=== PATIENT | female | born 1945 | race Caucasian/White ===

== ENCOUNTER 2021-04-27 15:43 | Inpatient (IN) ==
[2021-04-27] MEDS ORDERED: Isovue-370 500 ML BOTTLE IVP ONE (16:05)
[2021-04-27 16:17] LABS: Hematocrit 43.8 % (35.3-44.9); Hemoglobin 14.2 g/dL (11.5-15.4); Mean Corpuscular HGB Conc 32.4 g/dL (31.6-35.5); Mean Corpuscular Hemoglobin 30.1 pg (28.0-33.3); Mean Corpuscular Volume 92.8 fL (83.0-100.0); Mean Platelet Volume 9.9 fL (9.4-12.4); Platelet Count 380 K/mcL (140-400); Red Blood Count 4.72 M/mcL (3.82-4.97); Red Cell Distribution Width 15.1 % (11.5-14.5); White Blood Count 9.5 K/mcL (4.3-11.1)
[2021-04-27 16:29] LABS: Prothrombin Time 11.2 Seconds (9.4-12.1)
[2021-04-27 16:32] LABS: Activated Partial Thrombo Time 35.2 Seconds (26.0-36.0)
[2021-04-27 16:34] LABS: BUN/Creatinine Ratio 25 (6-26); Blood Urea Nitrogen 31 mg/dL (8-23); Carbon Dioxide 28 mEq/L (23-29); Chloride 102 mEq/L (98-107); Glucose 124 mg/dL (70-105); Osmolality,Calculated 294 (280-300); Sodium 138 mEq/L (136-145); eGFR For African Americans 51 (> 60); eGFR For Non-African Americans 42 (> 60)
[2021-04-27 16:36] LABS: Troponin I < 0.03 ng/mL (< 0.04)
[2021-04-27] MEDS ORDERED: 0.9 % Sodium Chloride 1,000 ML IV ONE (16:50)
[2021-04-27] MEDS ORDERED: Aspirin 325 MG TABLET PO ONE (16:59)
[2021-04-27] MEDS ORDERED: Naloxone 0.4 MG/ML INJ IVP PRN ×2 (17:35→17:40)
[2021-04-27] MEDS ORDERED: Ondansetron ODT 4 MG TAB.RAPDIS SL PRN (17:40)
[2021-04-27] MEDS ORDERED: Fluticasone Propionate Nasal 50 MCG/SPRAY BOTTLE NS PRN (18:35)
[2021-04-27] MEDS ORDERED: Perflutren Lipid Microsphere 1.3 ML in 0.9 % Sodium Chloride 8.7 ML IVP PRN ×2 (18:47→19:05)
[2021-04-27 19:24] LABS: Bilirubin,Urine Negative (Negative); Blood,Urine Negative (Negative); Clarity,Urine Clear (Clear); Color,Urine Colorless (Yellow); Glucose,Urine (UA) Normal (Normal); Ketones,Urine Negative (Negative); Leukocyte Esterase,Urine Negative (Negative); Nitrite,Urine Positive (Negative); PH,Urine 6.5 pH Units (5.0-8.0); Protein,Urine Negative (Neg-Trace); RBC,Urine 0-3 per hpf (0-3); Specific Gravity,Urine 1.019 (1.010-1.025); Urobilinogen,Urine Normal (Normal); WBC,Urine 0-3 per hpf (0-3)
[2021-04-27] MEDS ORDERED: rOPINIRole 1 MG TABLET PO SCH (21:00)
[2021-04-27] MEDS: Lidocaine 4% CREAM (LMX) 5 GM TP SCH (22:11)
[2021-04-27] MEDS: 0.9 % Sodium Chloride 1,000 ML IVC SCH (22:18)
[2021-04-28 01:25] LABS: Basophils % 0.4 %; Hematocrit 44.9 % (35.3-44.9); Hemoglobin 14.7 g/dL (11.5-15.4); Immature Granulocytes % 0.6 % (0-4); Lymphocytes # 0.9 K/mcL (0.6-4.6); Mean Corpuscular HGB Conc 32.7 g/dL (31.6-35.5); Mean Corpuscular Hemoglobin 30.1 pg (28.0-33.3); Monocytes # 0.1 K/mcL (0.0-1.3); Monocytes % 1.1 %; Neutrophils # 8.1 K/mcL (1.6-8.9); Platelet Count 392 K/mcL (140-400); Red Blood Count 4.88 M/mcL (3.82-4.97); Segmented Neutrophils % 87.9 %; White Blood Count 9.2 K/mcL (4.3-11.1)
[2021-04-28 01:48] LABS: Prothrombin Time 11.4 Seconds (9.4-12.1)
[2021-04-28 01:49] LABS: Activated Partial Thrombo Time 35.3 Seconds (26.0-36.0); Alanine Aminotransferase 13 Units/L (7-52); Albumin 4.1 g/dL (3.5-5.7); Albumin/Globulin Ratio 1.5 (1.1-2.2); Alkaline Phosphatase 48 Units/L (34-104); Aspartate Amino Transferase 17 Units/L (13-39); BUN/Creatinine Ratio 27 (6-26); Bilirubin,Total 0.3 mg/dL (0.3-1.0); Blood Urea Nitrogen 28 mg/dL (8-23); Calcium 9.4 mg/dL (8.6-10.3); Carbon Dioxide 22 mEq/L (23-29); Chloride 104 mEq/L (98-107); Chol/HDL Ratio 5.9 (0-4.9); Cholesterol 229 mg/dL (< 200); Globulin 2.7 g/dL (2.4-3.5); Glucose 279 mg/dL (70-105); HDL Cholesterol 39 mg/dL (40-59); LDL Cholesterol,Calculated 165 mg/dL (< 100); Osmolality,Calculated 298 (280-300); Sodium 136 mEq/L (136-145); Total Protein 6.8 g/dL (6.4-8.9); Triglycerides 124 mg/dL (< 150); eGFR For African Americans > 60 (> 60); eGFR For Non-African Americans 52 (> 60)
[2021-04-28] MEDS ORDERED: Ketorolac 30 MG/ML VIAL IVP ONE (05:57)
[2021-04-28] MEDS: Lidocaine 4% CREAM (LMX) 5 GM TP SCH ×2 (08:36→14:11)
[2021-04-28] MEDS ORDERED: NON-FORMULARY MEDICATION 1 EACH EACH (Potassium 99 MG Tablet) PO SCH (09:00)
[2021-04-28] MEDS ORDERED: Fenofibrate 54 MG TABLET PO SCH (09:00)
[2021-04-28] MEDS ORDERED: Loratadine 10 MG TABLET PO SCH (09:00)
[2021-04-28] MEDS ORDERED: Iron Polysaccharide Complex 150 MG CAPSULE PO SCH (09:00)
[2021-04-28] MEDS ORDERED: Aspirin Enteric Coated 81 MG Tablet PO ONE (09:00)
[2021-04-28] MEDS: 0.9 % Sodium Chloride 1,000 ML IVC SCH (11:25)
[2021-04-28 11:57] LABS: Estimated Average Glucose 171 mg/dl; Hemoglobin A1C 7.6 %
[2021-04-28 14:06] VITALS: PULSE 84
[2021-04-28] MEDS ORDERED: Lisinopril-HCTZ 20-12.5mg TABLET PO SCH (14:30)
[2021-04-28] MEDS ORDERED: Metoprolol 100 MG TABLET PO SCH (14:30)
[2021-04-28] MEDS ORDERED: lisinopriL 20 MG TABLET PO SCH (18:00)
[2021-04-28 18:15] VITALS: BP 177/79; TEMP 99.7; O2SAT 96
[2021-04-29] MEDS ORDERED: *HR* Enoxaparin 30 MG/0.3 ML SYRINGE SQ SCH (06:00)
[2021-04-29] MEDS ORDERED: amLODIPine 5 MG TABLET PO SCH (09:00)
[2021-04-29] MEDS ORDERED: Aspirin Enteric Coated 81 MG Tablet PO SCH (09:00)
== END 2021-04-28 19:57 | disposition left against medical advice (07) | DRG 66 ==
LOC: EMEROOARM 15:43 → 3BNU 15:43 → SUATTDRO 20:02 → 3BNU 21:03
PROVIDERS: ADMIT Internal Medicine; ATTEND Internal Medicine